=== PATIENT | male | born 1980 | race Two or more races ===

== ENCOUNTER 2017-07-20 23:26 | Emergency (ER) | payer OTHER ==
[~2017-07-20] VITALS: Ht 188 cm; Wt 87.0 kg
[2017-07-20 23:28] VITALS: Ht 188 cm; Wt 87.0 kg
--- NOTE | 2017-07-21 01:58 | ERD ---
ER Documentation Chief Complaint Chief Complaint "Feels like my head veins and arteries are getting jammed." (+) High Chol HPI Follow up with your PCP within the next 1-3 days for a more thorough evaluation and a possible referral to a specialist. Return the the emergency department immediately if symptoms worsen or change. If you have any questions regarding medications, ask your pharmacist or us before you leave. If any adverse reactions occur while taking your medications, discontinue the treatment and return to the emergency department immediately. Take your medications as directed, and complete the entire course of treatment. ROS All systems reviewed and are negative except as per history of present illness. Allergies Allergies: Coded Allergies: No Known Allergy (Unverified , 07/20/17) Physical Exam Vitals Vital Signs Date Time Temp Pulse Resp B/P Pulse Ox O2 Delivery O2 Flow Rate FiO2 07/20/17 23:28 97.7 78 18 140/90 99 Physical Exam Const: Well-appearing 36-year-old male in no acute distress Head: Atraumatic . No temporal artery prominence or tenderness. Eyes: Normal Conjunctiva. Ophthalmoscope exam unremarkable. ENT: Normal External Ears, Nose and Mouth.No mastoid tenderness. Otoscope exam unremarkable. Neck: Full range of motion..~ No meningismus.No bruits auscultated. Good air movement. No masses palpated. Resp: Clear to auscultation bilaterally Cardio: Regular rate and rhythm, no murmurs Abd: Soft, non tender, non distended. Normal bowel sounds Skin: No petechiae or rashes Back: No midline or flank tenderness Ext: No cyanosis, or edema Neur: Awake and alert Psych: Normal Mood and Affect Departure Diagnosis: Primary Impression: Head and face pain Condition: Stable Patient Instructions: Lifestyle Changes to Control Cholesterol Additional Instructions: Follow up with your PCP within the next 1-3 days for a more thorough evaluation and a possible referral to a specialist. Return the the emergency department immediately if symptoms worsen or change. If you have any questions regarding medications, ask your pharmacist or us before you leave. If any adverse reactions occur while taking your medications, discontinue the treatment and return to the emergency department immediately. Take your medications as directed, and complete the entire course of treatment. WAN RUBY PA-C Jul 21, 2017 01:58
[2017-07-21 02:37] VITALS: PULSE 69; RESP 18
== END 2017-07-21 02:38 | disposition home or self-care (01) ==
LOC: FTE 23:26
DX: R51 Headache (principal)
CPT/HCPCS: 99282